=== PATIENT | male | born 1960 | race Caucasian/White ===

== ENCOUNTER 2018-06-15 10:26 | Inpatient (IN) ==
[2018-06-15] MEDS ORDERED: SODIUM CHLORIDE 0.9% 1000ML 1,000 ML IV ONE (10:45)
[2018-06-15 10:54] LABS: Basophils # (auto) 0.02 K/uL (0-0.2); Basophils % (auto) 0.3 %; Eosinophils # (auto) 0.23 K/uL (0-0.5); Hematocrit (blood only) 40.9 % (42-52); Hemoglobin 14.1 g/dL (14.0-18.0); Lymphocytes # (auto) 2.25 K/uL (1.2-3.4); Lymphocytes % (auto) 39.1 %; Mean Corpuscular Hgb Conc 34.5 g/dL (32-36); Mean Corpuscular Volume 95.6 fL (80-100); Mean Platelet Volume 10.2 fL (7.4-10.4); Monocytes # (auto) 0.59 K/uL (0.11-0.59); Monocytes % (auto) 10.3 %; Neutrophils # (auto) 2.66 K/uL (1.4-6.5); Neutrophils % (auto) 46.3 %; Platelet Count 208 K/uL (130-400); RDW Coefficient of Variation 13.6 % (11.5-14.5); RDW Standard Deviation 47.5 fL (36.4-46.3); Red Blood Count 4.28 M/uL (4.7-6.1); White Blood Count 5.75 K/uL (4.8-10.8)
--- NOTE | 2018-06-15 11:00 | CT Scan Report ---
CT head/brain wo con CT DOSE: 691.05 mGy.cm HISTORY: Stroke. Mental status change. Stroke evaluation TECHNIQUE: Multiaxial CT images of the head were performed without the use of intravenous contrast. A dose lowering technique was utilized adhering to the principles of ALARA. Comparison: None. Findings: Moderate mucosal thickening in the ethmoid and maxillary sinuses. The mastoid air cells are clear. Findings of age-related atrophy and chronic small vessel change. 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 The calvarium and skull base are intact. The ventricles and sulci are within normal limits. There is no mass, hematoma, midline shift, or acute infarct. No evidence for acute intracran ial hemorrhage Impression: 1. No acute intracranial abnormality. 2. Age-related atrophy and chronic small vessel change. 3. Moderate mucosal thickening in the ethmoid and maxillary sinuses. The above report was generated using voice recognition software. It may contain grammatical, syntax or spelling errors. Electronically signed by: Marco Antonio Sultana M.D. 06/15/2018 10:59 AM
[2018-06-15 11:10] LABS: Alanine Aminotransferase 26 U/L (12-78); Albumin Level 3.4 gm/dl (3.4-5.0); Aspartate Aminotransferase 22 U/L (15-37); BUN Creatinine Ratio 18.1 (10-20); Blood Urea Nitrogen 16 mg/dl (7-18); Calcium 9.1 mg/dl (8.5-10.1); Carbon Dioxide 22 mmol/L (21-32); Chloride 110 mmol/L (98-107); Creatinine Clr Calc Pharmacy 92.6 ml/min; Est GFR (African American) 110.5; Est GFR (Non-African American) 95.4; Glucose 88 mg/dl (70-99); Potassium 3.9 mmol/L (3.5-5.1); Sodium 140 mmol/L (136-145)
[2018-06-15 11:15] LABS: Albumin Globulin Ratio 0.9 (0.9-2); Alkaline Phosphatase 62 U/L (45-117); Bilirubin,Total 0.3 mg/dl (0.2-1); Globulin 3.8 gm/dl (2.5-4.0); Phosphorus 2.9 mg/dl (2.5-4.9); Total Protein 7.2 gm/dl (6.4-8.2); Troponin I < 0.015 ng/ml (0-0.045)
[2018-06-15] MEDS ORDERED: ASPIRIN CHEW 324 MG PO STA (11:41)
--- NOTE | 2018-06-15 13:10 | Emergency Department Note ---
Entered by Lelo Amaya acting as a scribe for History of Present Illness General Chief complaint: Stroke/CVA Symptoms Time Seen by Provider: 06/15/18 10:37 History of Present Illness Onset (ago): day(s) (this morning) Location: head Pain Consistency: + other (episode) Quality: + other (stroke like symptoms) Associated symptoms: + denies other symptoms (numbness, tingling, vision changes) and + other (speech slur, facial droop); no chest pain and no weakness The patient is a 57 male w/ PMHx of a stroke who presents to the ED w/ CC of an episode of stroke like symptoms starting this morning. The patient states that he went to bed fine last night about 12 hours ago. He states that when he woke up this morning about 5 hours ago he noticed that his speech felt slurred and he had a left facial droop. He states that it hasnt gotten any better since starting so he called 911. He states that he is nervous because he had a stroke last year and is on baby aspirin. The patient denies chest pain, numbness, tingling, weakness, vision changes, recent travel, recent antibiotic use, and recent fall. Home Medications Home Medications Medication Instructions Recorded Confirmed Type amlodipine 10 mg PO DAILY 06/15/18 06/15/18 History atorvastatin 80 mg PO HS 06/15/18 06/15/18 History hydrochlorothiazide 25 mg PO QAM 06/15/18 06/15/18 History losartan 25 mg PO DAILY 06/15/18 06/15/18 History Allergies Allergy/AdvReac Type Severity Reaction Status Date / Time No Known Allergies Allergy Verified 06/15/18 11:22 Past Med/Surg History Medical History Stroke Family History Other No significant family history Social History marital status: Single Current Living Situation: Homeless current occupational status: unemployed Feels Safe at Home: Yes Smoking Status: Current every day smoker Hx Alcohol Use: Yes Alcohol type: hard liquor Review of Systems See HPI for pertinent positives & negatives. and A total of 10 systems reviewed and were otherwise negative Physical Exam Vital Signs Vital Signs - 24 hr 06/15/18 10:30 06/15/18 10:48 06/15/18 11:00 Temperature 37 C Temperature Source Oral Sepsis Recent Fever Within 48 Hours No Sepsis Action Taken by Nursing No Action Required Pulse Rate 95 H 88 Pulse Rate from SpO2 Sensor 84 Pulse Rhythm Regular Pulse Strength Normal Respiratory Rate 20 14 Respiratory Effort / Characteristics Non-Labored Spontaneous Respiratory Depth Normal Respiratory Pattern Regular Blood Pressure 166/99 H Blood Pressure Mean 121 Blood Pressure Position Lying Pulse Oximetry 94 95 Oxygen Delivery Method Room Air Room Air Room Air 06/15/18 11:30 06/15/18 12:00 Temperature Temperature Source Sepsis Recent Fever Within 48 Hours Sepsis Action Taken by Nursing Pulse Rate 77 82 Pulse Rate from SpO2 Sensor 77 82 Pulse Rhythm Pulse Strength Respiratory Rate 18 13 Respiratory Effort / Characteristics Respiratory Depth Respiratory Pattern Blood Pressure 152/86 H Blood Pressure Mean 108 Blood Pressure Position Pulse Oximetry 95 96 Oxygen Delivery Method Room Air Room Air GENERAL: Well appearing, well nourished, NAD, non-toxic. EYE EXAM: Normal conjunctiva. PERRL, no anisocoria and EOM's grossly intact w/o pain. OROPHARYNX: Moist mucus membranes. Grossly normal dentition. NECK: Supple, no nuchal rigidity, no adenopathy, non-tender. no signs of meningismus. LUNGS: Clear to auscultation. Normal chest wall mechanics. HEART: NSR, no MRG. ABDOMEN: Abdomen soft, non-tender, normo-active bowel sounds, no masses, no rebound or guarding. BACK: No CVA TTP. SKIN: No rashes and no bruising. UPPER EXTREMITIES: Upper extremities are grossly normal. LOWER EXTREMITIES: No pitting edema. No calf pain. NEURO EXAM: A&O x3, cranial nerves II-XII grossly intact with the exception of mild slurred speech, left sided facial droop but able to raise L eyebrow, 5/5 strength throughout, no sensory deficits, good finger to nose, no pronator drift, moves all 4 extremities on command w/o issue. Course 1040: The patient was evaluated in room B12B. A complete history and physical exam was performed. 1145: I discussed the patient's case with Candis Deleon PA-C- [facility] Hospitalist. She will evaluate the patient for further management. 1221: I reevaluated the patient and updated him on his test results. I discussed the treatment plan with him. He verbally agrees and understands. Consultations Consultation #1: I discussed the patient's case with Candis Deleon PA-C- [facility] Hospitalist. She will evaluate the patient for further management. Time: 11:45 Administered Medications Discontinued Medications Aspirin (Aspirin) 324 mg PO NOW STA Stop: 06/15/18 11:42 Last Admin: 06/15/18 12:02 Dose: 324 mg Documented by: [id number] Sodium Chloride (Nss 1000ml) 1,000 mls @ 999 mls/hr IV .Q1H1M ONE Stop: 06/15/18 11:45 Last Infusion: 06/15/18 11:50 Dose: 0 mls/hr Documented by: [id number] Admin: 06/15/18 10:49 Dose: 999 mls/hr Documented by: [id number] Medical Decision Making Differential Diagnosis Differential Diagnosis includes but is not limited to dehydration, stroke, anemia, hypoglycemia, hyponatremia, hypernatremia, urinary tract infection, pneumonia, bronchitis, sepsis, gastroenteritis, additional abdominal pathology, metabolic abnormalities and infections. Medical Records Attestation: I reviewed the patient's medical records. Home Medications Current Medication List: was personally reviewed by me Laboratory Data Attestation: I reviewed the patient's lab results. Result diagrams: 06/15/18 10:20 06/15/18 10:20 Lab Results 06/15/18 06/15/18 06/15/18 Range/Units 10:20 10:20 10:20 WBC 5.75 (4.8-10.8) K/uL RBC 4.28 L (4.7-6.1) M/uL Hgb 14.1 (14.0-18.0) g/dL Hct 40.9 L (42-52) % MCV 95.6 (80-100) fL MCH 32.9 (25-34) pg MCHC 34.5 (32-36) g/dL RDW Std Deviation 47.5 H (36.4-46.3) fL RDW Coeff of Faith 13.6 (11.5-14.5) % Plt Count 208 (130-400) K/uL MPV 10.2 (7.4-10.4) fL Immature Gran % (Auto) 0.0 % Neut % (Auto) 46.3 % Lymph % (Auto) 39.1 % [place] % (Auto) 10.3 % Eos % (Auto) 4.0 % Baso % (Auto) 0.3 % Immature Gran # (Auto) 0.00 (0.00-0.02) K/uL Neut # (Auto) 2.66 (1.4-6.5) K/uL Lymph # (Auto) 2.25 (1.2-3.4) K/uL [place] # (Auto) 0.59 (0.11-0.59) K/uL Eos # (Auto) 0.23 (0-0.5) K/uL Baso # (Auto) 0.02 (0-0.2) K/uL PT Cancelled INR Cancelled APTT Cancelled PTT Ratio Cancelled Sodium (136-145) mmol/L Potassium (3.5-5.1) mmol/L Chloride (98-107) mmol/L Carbon Dioxide (21-32) mmol/L Anion Gap (3-11) BUN (7-18) mg/dl Creatinine (0.6-1.4) mg/dl Est Cr Clr Drug Dosing ml/min Est GFR ( Amer) Est GFR (Non-Af Amer) BUN/Creatinine Ratio (10-20) Glucose (70-99) mg/dl POC Glucose (70-99) Calcium (8.5-10.1) mg/dl Phosphorus Cancelled Magnesium (1.8-2.4) mg/dl Total Bilirubin (0.2-1) mg/dl AST (15-37) U/L ALT (12-78) U/L Alkaline Phosphatase (45-117) U/L Troponin I (0-0.045) ng/ml Total Protein (6.4-8.2) gm/dl Albumin (3.4-5.0) gm/dl Globulin (2.5-4.0) gm/dl Albumin/Globulin Ratio (0.9-2) Ethyl Alcohol mg/dL (0-3) mg/dl 06/15/18 06/15/18 06/15/18 Range/Units 10:20 10:32 11:04 WBC (4.8-10.8) K/uL RBC (4.7-6.1) M/uL Hgb (14.0-18.0) g/dL Hct (42-52) % MCV (80-100) fL MCH (25-34) pg MCHC (32-36) g/dL RDW Std Deviation (36.4-46.3) fL RDW Coeff of Faith (11.5-14.5) % Plt Count (130-400) K/uL MPV (7.4-10.4) fL Immature Gran % (Auto) % Neut % (Auto) % Lymph % (Auto) % [place] % (Auto) % Eos % (Auto) % Baso % (Auto) % Immature Gran # (Auto) (0.00-0.02) K/uL Neut # (Auto) (1.4-6.5) K/uL Lymph # (Auto) (1.2-3.4) K/uL [place] # (Auto) (0.11-0.59) K/uL Eos # (Auto) (0-0.5) K/uL Baso # (Auto) (0-0.2) K/uL PT INR APTT PTT Ratio Sodium 140 (136-145) mmol/L Potassium 3.9 (3.5-5.1) mmol/L Chloride 110 H (98-107) mmol/L Carbon Dioxide 22 (21-32) mmol/L Anion Gap 9.0 (3-11) BUN 16 (7-18) mg/dl Creatinine 0.88 (0.6-1.4) mg/dl Est Cr Clr Drug Dosing 92.6 ml/min Est GFR ( Amer) 110.5 Est GFR (Non-Af Amer) 95.4 BUN/Creatinine Ratio 18.1 (10-20) Glucose 88 (70-99) mg/dl POC Glucose 92 (70-99) Calcium 9.1 (8.5-10.1) mg/dl Phosphorus 2.9 Magnesium 2.0 (1.8-2.4) mg/dl Total Bilirubin 0.3 (0.2-1) mg/dl AST 22 (15-37) U/L ALT 26 (12-78) U/L Alkaline Phosphatase 62 (45-117) U/L Troponin I < 0.015 (0-0.045) ng/ml Total Protein 7.2 (6.4-8.2) gm/dl Albumin 3.4 (3.4-5.0) gm/dl Globulin 3.8 (2.5-4.0) gm/dl Albumin/Globulin Ratio 0.9 (0.9-2) Ethyl Alcohol mg/dL < 3.0 (0-3) mg/dl Imaging Data Radiologist's Impression: Radiology results as stated below per my review and the radiologist's interpretation: CT head/brain wo con CT DOSE: 691.05 mGy.cm HISTORY: Stroke. Mental status change. Stroke evaluation TECHNIQUE: Multiaxial CT images of the head were performed without the use of intravenous contrast. A dose lowering technique was utilized adhering to the principles of ALARA. Comparison: None. Findings: Moderate mucosal thickening in the ethmoid and maxillary sinuses. The mastoid air cells are clear. Findings of age-related atrophy and chronic small vessel change. 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 The calvarium and skull base are intact. The ventricles and sulci are within normal limits. There is no mass, hematoma, midline shift, or acute infarct. No evidence for acute intracranial hemorrhage Impression: 1. No acute intracranial abnormality. 2. Age-related atrophy and chronic small vessel change. 3. Moderate mucosal thickening in the ethmoid and maxillary sinuses. The above report was generated using voice recognition software. It may contain grammatical, syntax or spelling errors. Electronically signed by: Marco Antonio Sultana M.D. 06/15/2018 10:59 AM ECG Data Attestation: I personally reviewed and interpreted this ECG as follows: Indication: weakness Rate (beats per minute): 89 Rhythm: normal sinus Findings: + other (normal intervals, normal axis); no ST depression and no ST elevation Blood Pressure Blood Pressure Findings: Elevated blood pressure Blood Pressure Disposition: further management by hospitalist BEENA Narrative The patient is a 57 male w/ PMHx of a stroke who presents to the ED w/ CC of an episode of stroke like symptoms starting this morning. Differential Diagnosis includes but is not limited to dehydration, stroke, anemia, hypoglycemia, hyponatremia, hypernatremia, urinary tract infection, pneumonia, bronchitis, sepsis, gastroenteritis, additional abdominal pathology, metabolic abnormalities and infections. Patient was seen and evaluated the bedside. I did receive a medical command call with concern for slurred speech as well as some facial droop. This apparently was upon waking up around 6 AM this morning. The patient went to bed around 1030 last evening normal. Patient denies any alcohol use or falls. Patient is 12 hours at least since last known well. Patient did have a CT of the head which is negative. The patient does not appear to have absent left eyebrow function. Given this this concern for possible central etiology. The patient does have prior history of stroke with no prior history of deficits. The patient does take a full dose aspirin. The patient's other blood work is fairly unremarkable. EKG does not show arrhythmia. Patient was given a full dose aspirin and given the patient's persistent left-sided facial droop and associated slurred speech patient was admitted to the medicine service. Impression & Plan Facial droop, Slurred speech Discharge Plan Visit Data Chief Complaint: Stroke/CVA Symptoms ED Provider: Jemal Joy Discharge Problem: Facial droop, Slurred speech Patient Disposition: Being Evaluated by Hospitalist Forms Stand Alone Forms: My [facility] Prescriptions Prescriptions: No Action atorvastatin 40 mg Tablet 80 mg PO HS RF: 0 amlodipine 10 mg Tablet 10 mg PO DAILY RF: 0 losartan 25 mg Tablet 25 mg PO DAILY RF: 0 hydrochlorothiazide 25 mg Tablet 25 mg PO QAM RF: 0 Referrals Referrals: PCP,NO [Primary Care Provider] - Queries: Stroke Queries Contraindication Not Initiating IV-Tpa: Treatment not indicated (Last known well was 12 hours ago; woke up with symptoms) Onset of Symptoms Date: 06/15/18 Symptom Onset Unknown: No The scribe's documentation has been prepared under my direction and personally reviewed by me in its entirety. I confirm that the note above accurately reflects all work, treatment, procedures, and medical decision making performed by me.
--- NOTE | 2018-06-15 14:54 | Neurology Consultation ---
Date of Consultation June 15, 2018 Assessment & Plan (1) Facial droop: 1. MRI with and without r/o stroke 2. TTE- with bubble study 3. CTA head and neck for vascular evaluation 4. start aspirin 81 mg daily 5. optimize HTN, HLD, LDL <70 6. smoking cessation discussed 7. PT/OT speech for any discharge needs 8. will need to establish care mgt input for discharge plan 9. further recommendations once studies are completed. (2) Slurred speech: same as above (3) Stroke: same as above Supervising Physician Co-Signing Physician Notes I have discussed above patient with Dr Lucero Crum, neurology. Pt is not at bedside. Hx of prior stroke reviewed. Pt with vasc risk factors, not currently taking his meds. MRI shows acute R BG infarct. ASA and Plavix at present, carotid us, echo, tele. Statin, gradual reduction of normotension. Will see in am. ANABELA Crum MD History of Present Illness Reason for Consultation: stroke work up Requesting Physician: Candis BOATENG History of Present Illness Yann is a 57 year old male who presented with a facial droop and slurred speech. He woke this am with the symptoms. He had a stroke in December in [place] with similar symptoms. He was placed on aspirin after the previous stroke but has not been taking it or the other medication he was told to take. He is currently homeless but moved to [facility] to be closer to his family. he denies any drug or EtoH use. he smokes 1ppd cigarettes. denies CP, SOB, abdominal pain, one sided weakness, numbness tingling, N, V, vision changes, swallowing issues. Allergies Allergy/AdvReac Type Severity Reaction Status Date / Time No Known Allergies Allergy Verified 06/15/18 11:22 Home Medications Home Medications Medication Instructions Recorded Confirmed Type amlodipine 10 mg PO DAILY 06/15/18 06/15/18 History atorvastatin 80 mg PO HS 06/15/18 06/15/18 History hydrochlorothiazide 25 mg PO QAM 06/15/18 06/15/18 History losartan 25 mg PO DAILY 06/15/18 06/15/18 History Patient History Medical History History of CVA (cerebrovascular accident) (Chronic) November 2017, no deficits HLD (hyperlipidemia) (Chronic) HTN (hypertension) (Chronic) Surgical History History of foot surgery (Chronic) Family History Other Family history unknown Social History Preferred Language: Chinese Extr[employer]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 Beliefs That Will Affect Care: None marital status: Single Current Living Situation: Homeless Current Living Situation Comment: out of the cold homeless correction current occupational status: unemployed Other Information That Helps Us Care for You: No Feels Safe at Home: Yes Safety Concerns: Feels Safe At This Time Smoking Status: Current every day smoker Tobacco Type: cigarettes Cigarettes Per Day: 1ppd Do You Dip or Chew Tobacco: No Hx Alcohol Use: Yes Alcohol type: hard liquor Hx Substance Use: No Physical Exam Physical Exam: Physical Exam: Constitutional: appearance nourished, disheveled, unkept Ears, Nose, Mouth and Throat: mucous membranes moist, no injection and skin normal, eyes normal Cardiovascular: normal S-1 and S-2 and regular rate and rhythm Respiratory: course breath sounds Musculoskeletal: no peripheral edema Skin: no stigmata of neurocutaneous disease noted and normal and intact Eyes: extraocular muscles intact (EOMI) and pupils equal, round and reactive to light (PERRL), gross vision and peripheral marks intake NEUROLOGIC EXAMINATION: Mental status: Alert and interactive Oriented to full date and location Oriented to person Speech dysphasia Cranial Nerves smile unequal, nasolabial fold left flattened Reflexes: Deep tendon reflexes were symmetrical and graded 2/5. Sensory: no deficit to light cool touch Coordination: finger to nose no bipass Gait/Stance: Posture strength bilaterally biceps triceps hand outpatient scheduler 5/5, hip flex patellar plantar flex ext 5/5 bilaterally Motor: Negative for pronator drift of out stretched arms with eyes closed. Strength: Normal - 5/5 all extremities Results & Data Vital Signs (Past 12 Hours) Vital Signs Temp Pulse Resp BP Pulse Ox 06/15/18 14:00 72 16 134/79 96 06/15/18 13:01 78 14 155/81 H 93 06/15/18 13:00 80 13 93 06/15/18 12:31 76 10 L 149/84 H 93 06/15/18 12:30 79 14 94 06/15/18 12:16 76 11 L 152/86 H 94 06/15/18 12:00 82 13 152/86 H 96 06/15/18 11:30 77 18 95 06/15/18 11:00 88 14 95 06/15/18 10:30 37 C 95 H 20 166/99 H 94 Laboratory Results Abnormal lab results 06/15/18 06/15/18 Range/Units 10:20 10:20 RBC 4.28 L (4.7-6.1) M/uL Hct 40.9 L (42-52) % RDW Std Deviation 47.5 H (36.4-46.3) fL Chloride 110 H (98-107) mmol/L Diagnostic Findings CT head -No acute intracranial abnormality. Age-related atrophy and chronic small vessel change. Moderate mucosal thickening in the ethmoid and maxillary sinuses.
--- NOTE | 2018-06-15 15:18 | History & Physical Report ---
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 -L facial droop and dysarthria since this morning -H/o ischemic CVA in Nov 2017, started on full dose aspirin -Has not taken home medications for the past few weeks -CT head wo without evidence of acute abnormality -Brain MRI w/wo with acute right basal ganglia infarct. Moderately extensive white matter disease with multiple old lacunar infarcts involving both cerebellar hemispheres the pontomedullary junction both basal ganglia and both thalami. -CTA head/neck with senescent change and remote infarcts. There is no hemo rrhage, mass effect, or evidence of acute territorial ischemia by CT criteria noting angiographic technique. There is approximately 50% focal stenosis at the origin of the left internal carotid artery. The carotid arteries are otherwise patent bilaterally. -Echo with bubble study pending -Dual antiplatelet therapy with baby aspirin, plavix -PT, OT, speech therapy evaluations -Neurology consulted. Appreciate recommendations (2) HTN (hypertension): Prescribed amlodipine, losartan and hctz but has not been taking for the last few weeks -Will hold for now to allow for permissive HTN in setting of acute ischemic infarct to allow for cerebral perfusion: SBP <220, DBP <110 (3) HLD (hyperlipidemia): Continue statin DVT Ppx: SCDs Code status: FULL code per discussion with patient PCP: Assigned to Dr. Griggs (has not seen yet) Dispo: Observation med tele. Discharge planning per stroke set protocol. Patient seen in collaboration with Dr. Resendiz. Please see addendum. History of Present Illness Chief Complaint: Facial droop, slurred speech Primary Care Provider: NO PCP This is a 57-year-old male with history of ischemic CVA in Nov 2017, HTN, HLD, tobacco use disorder and other medical problems listed below who presents with facial droop and slurred speech beginning this morning. Patient woke up and noted these new symptoms and called EMS to be brought to the ED for further evaluation. Did not have the symptoms when he went to bed last night. Was diagnosed with a stroke in November 2017 but was in [place] at that time. Was started on a full dose aspirin. Has recently moved to [place] to be closer to family, but is currently homeless and staying in shelters via [facility]. Has not been taking medications because he feels that they are difficult to keep track of. Denies any difficulty swallowing, weakness or numbness in extremities, difficulty ambulating or confusion. Smokes 1 ppd cigarettes x 30 years. Last etoh 2 weeks ago. Found to be hemodynamically stable in ED. Given full dose aspirin and [address] head without contrast is negative for acute abnormalities. Denies fever, chills, lightheadedness, headache, chest pain, shortness of breath, nausea, vomiting, abdominal pain, dysuria, diarrhea, constipation or lower extremity swelling. Allergies Allergy/AdvReac Type Severity Reaction Status Date / Time No Known Allergies Allergy Verified 06/15/18 11:22 Home Medications Home Medications Medication Instructions Recorded Confirmed Type amlodipine 10 mg PO DAILY 06/15/18 06/15/18 History atorvastatin 80 mg PO HS 06/15/18 06/15/18 History hydrochlorothiazide 25 mg PO QAM 06/15/18 06/15/18 History losartan 25 mg PO DAILY 06/15/18 06/15/18 History Past Med/Surg History Medical History History of CVA (cerebrovascular accident) (Chronic) November 2017, no deficits HLD (hyperlipidemia) (Chronic) HTN (hypertension) (Chronic) Surgical History History of foot surgery (Chronic) Family History Other Family history unknown Social History marital status: Single Current Living Situation: Homeless current occupational status: unemployed Feels Safe at Home: Yes Smoking Status: Current every day smoker Hx Alcohol Use: Yes Alcohol type: hard liquor Review of Systems Review of Systems: At least ten systems reviewed and negative except as noted in the HPI. Physical Exam Physical Exam: General Appearance: WD/WN, no apparent distress, appears older than stated age, resting comfortably Head: normocephalic, atraumatic Eyes: normal inspection, PERRL, EOMI ENT: hearing grossly normal, pharynx normal (moist mucous membranes) Neck: supple, no JVD, no adenopathy Respiratory/Chest: lungs clear to auscultation. No wheezes, rales or rhonci. No respiratory distress or accessory muscle use Cardiovascular: regular rate, rhythm, no murmur, normal peripheral pulses Abdomen/GI: normal bowel sounds, soft, non-tender to palpation Extremities/Musculoskelatal: normal inspection, no calf tenderness, normal capillary refill, no pedal edema Neurologic/Psych: alert, normal mood/affect, oriented x 3. L facial droop. Dysarthria. No weakness or sensory deficit noted. Cerebellar tests normal Skin: normal color, warm/dry Results & Data Vital Signs (Past 12 Hours) Vital Signs Temp Pulse Resp BP Pulse Ox 06/15/18 14:00 72 16 134/79 96 06/15/18 13:01 78 14 155/81 H 93 06/15/18 13:00 80 13 93 06/15/18 12:31 76 10 L 149/84 H 93 06/15/18 12:30 79 14 94 06/15/18 12:16 76 11 L 152/86 H 94 06/15/18 12:00 82 13 152/86 H 96 06/15/18 11:30 77 18 95 06/15/18 11:00 88 14 95 06/15/18 10:30 37 C 95 H 20 166/99 H 94 Laboratory Results Short CBC 06/15/18 Range/Units 10:20 WBC 5.75 (4.8-10.8) K/uL Hgb 14.1 (14.0-18.0) g/dL Hct 40.9 L (42-52) % Plt Count 208 (130-400) K/uL BMP 06/15/18 10:20 Sodium 140 Potassium 3.9 Chloride 110 H Carbon Dioxide 22 BUN 16 Creatinine 0.88 Glucose 88 Calcium 9.1 Cardiac Enzymes 06/15/18 Range/Units 10:20 Troponin I < 0.015 (0-0.045) ng/ml Liver Function 06/15/18 Range/Units 10:20 Total Bilirubin 0.3 (0.2-1) mg/dl AST 22 (15-37) U/L ALT 26 (12-78) U/L Alkaline Phosphatase 62 (45-117) U/L Albumin 3.4 (3.4-5.0) gm/dl Diagnostic Findings CT head: Impression: 1. No acute intracranial abnormality. 2. Age-related atrophy and chronic small vessel change. 3. Moderate mucosal thickening in the ethmoid and maxillary sinuses. ECG Rhythm: normal sinus Change: no significant change Supervising Physician Co-Signing Physician Notes I have seen and examined the patient with physician credit control assistant and would like to comment in addition that Physical Exam General/Neuro: left sided facial droop, patient able to chew and swallow food at bedside, left sided upper extremity and lower extremity with more ataxia compared to right side Lungs: Clear to auscultation bilaterally, no wheezing Heart: regular rate and rhythm Abdomen: soft, nontender, positive bowel sounds This is a patient with acute stroke and evaluation with MRI that patient has had Acute right basal ganglia infarct which is likely the source of acute symptoms of left sided facial droop and left extremity ataxia MRI also with findings of old infarcts: Moderately extensive white matter disease with multiple old lacunar infarcts involving both cerebellar hemispheres the pontomedullary junction both basal ganglia and both thalami. Patient have received full dose aspirin today and has been outside of window for TPA Are currently in discussing with neurology consultation and likely will do aspirin 81 mg daily and clopidgrel 75 mg daily will need further inpatient monitoring and physical and occupational therapy Patient gave permission to speak with Toño Goetz director of "[facility]" which is a homeless [facility] ([phone]) who reports that patient has been with the homeless agency for several months as he was originally from [place] and came to [place] to repair relationship with estranged sister in the local area. However patient no longer stays in touch with the sister due to deteriorated relationship. Patient in the past received medical care through [facility] ([facility]) but after obtaining medical assistance the patient will follow with Dr. Griggs at [facility] but patient has not seen this outpatient medical provider as of yet Management of other medical issues as documented by physician credit control assistant including Hypertension and continuing high dose statin for treating hyperlipidemia and reduce recurrent stroke risks History of alcohol intoxication in the past as per previous ED presentations; will give banana bag
[2018-06-15] MEDS ORDERED: ACETAMINOPHEN 325 MG TAB PO PRN (15:37)
[2018-06-15] MEDS ORDERED: POLYETHYLENE (MIRALAX) 17 GM PACK PO PRN (15:37)
[2018-06-15] MEDS ORDERED: ONDANSETRON INJ 2 MG/ML 2 ML VIAL IV PRN (15:37)
[2018-06-15] MEDS ORDERED: PHARMACIST DISCHARGE MED REC CONSULT SCH (15:39)
[2018-06-15] MEDS ORDERED: OPTIRAY 320 125ml IV PRN (16:20)
--- NOTE | 2018-06-15 16:40 | CT Scan Report ---
CT ANGIOGRAM OF THE BRAIN; CT ANGIOGRAM OF THE NECK CLINICAL HISTORY: Strokelike symptoms. COMPARISON STUDY: CT of the brain performed the same day 06/15/2018. CT scan of the cervical spine jose ed 05/17/2018. TECHNIQUE: Following the IV administration of 119 of Optiray 320, CT angiogram of the head and neck w as performed from the aortic arch to the vertex. Images are reviewed in the axial, sagittal, and cassandra nal planes. 3-D MIPS images are created and assessed. IV contrast was administered without complicati on. All measurements were calculated based on NASCET criteria. A dose lowering technique was utilize d adhering to the principles of ALARA. CT DOSE: 539.45 mGy.cm FINDINGS: Brain parenchyma: There is age-related involutional change noting moderate subcortical and periventri cular microangiopathic disease. Chronic lacunar infarcts identified within the right caudate head, th e right internal capsule, the right thalamus, the left caudate head, the left cerebellar hemisphere, and the external capsule bilaterally. There is no hemorrhage, mass effect, or evidence of acute jesse torial ischemia by CT criteria. There is no evidence of enhancing mass lesion on the angiogram phase images. The ventricles, sulci, and cisterns are prominent secondary to involutional change. Motley-whit e matter differentiation is preserved. No extra-axial fluid collection is seen. Thoracic aorta: There is atherosclerotic calcification of the thoracic aorta. Visualized portions of the thoracic aorta are normal in caliber. The aortic arch demonstrates standard 3-vessel anatomy. Right carotid arterial system: The right common carotid artery is widely patent, as are the right int ernal and internal carotid arteries. Moderate atherosclerotic plaque is identified in the carotid bul b. Left carotid arterial system: The left common carotid artery is widely patent noting atherosclerotic plaque and irregularity distally. There is approximately 50% focal stenosis at the origin of the left internal carotid artery. The remainder of the left internal carotid artery is widely patent, as is t he left external carotid artery. Vertebral arteries: The vertebral arteries are patent bilaterally noting left-sided dominance. Subclavian arteries: There is less than 50% stenosis of the left subclavian artery at the thoracic ou tlet. The right subclavian artery is widely patent. Intracranial vasculature: There is atherosclerotic calcification of the cavernous carotid arteries. T he internal carotid arteries are patent at the skull base, as are the anterior and middle cerebral ar teries bilaterally. The vertebrobasilar system and posterior cerebral arteries are widely patent. The right P1 segment is diminutive and there is a large right posterior communicating artery. The left v ertebral artery is dominant. There is no aneurysm, high-grade stenosis, or focal vessel cut off seen throughout the intracranial circulation. Jugular veins: Widely patent bilaterally. Dural sinuses: Patent. Lung apices: Emphysematous change and pleural-parenchymal scarring are noted at the apices. The image d upper lobe lung parenchyma appears clear. Soft tissues: The visualized pharyngeal soft tissues are normal in appearance noting angiographic pha se technique. The oropharyngeal airway appears widely patent. The salivary and thyroid glands are nor mal in appearance. No cervical lymphadenopathy is seen. Skeletal structures: The skeletal structures are osteopenic. The calvarium appears intact. The cervic al spine is maintained noting multilevel spondylosis limits. Orbits: The bony orbits are intact. Orbital contents are normal as imaged. Sinuses and mastoids: There is mild to moderate mucosal thickening with air-fluid levels is seen in t he maxillary antra. Moderate mucosal thickening is present within the frontal and ethmoid sinuses. Mi ld mucosal thickening is seen in the sphenoid sinuses. The mastoid air cells are well pneumatized. IMPRESSION: 1. Senescent change and remote infarcts as above. There is no hemorrhage, mass effect, or evidence of acute territorial ischemia by CT criteria noting angiographic technique. 2. Unremarkable CT angiogram of the brain. 3. There is approximately 50% focal stenosis at the origin of the left internal carotid artery. The c arotid arteries are otherwise patent bilaterally. 4. There is less than 50% stenosis of the left subclavian artery at the thoracic outlet. 5. Paranasal sinus disease as above. 6. Emphysema. Electronically signed by: Houston Pavon M.D. 06/15/2018 4:38 PM
[2018-06-15] MEDS ORDERED: GADOBUTROL 65ML VIAL IV PRN (17:04)
--- NOTE | 2018-06-15 17:30 | Magnetic Resonance Report ---
MRI OF THE BRAIN WITHOUT AND WITH IV CONTRAST CLINICAL HISTORY: stroke work up. Slurred speech, L facial droop COMPARISON STUDY: CT scan dated 06/15/2018 TECHNIQUE: MRI of the brain was performed from the vertex to the skull base utilizing various T1 and T2 weighted sequences. Following the IV administration of 7.7 mL of Gadavist contrast, additional enh anced images were obtained. FINDINGS: Sagittal T1, axial diffusion, proton density and T2 weighted axial, coronal FLAIR, and pre and post a xial T1-weighted images were acquired. These were supplemented with post gadolinium coronal T1 weight ed images. No intra or extra-axial mass lesions are visualized. There are foci of restricted water diffusion within the right lentiform nucleus and right caudate. Th e largest lesion measures 25 mm. The findings are consistent with acute/subacute infarcts. There is no evidence of ventricular dilatation. Proton density T2-weighted and FLAIR images reveal moderate foci of increased T2 signal within the wh ite matter, likely on a small vessel basis. There are multiple old lacunar infarcts including lesions within both cerebellar hemispheres, and the pontomedullary junction, both basal ganglia, and both th leandro. In addition there is atrophy including cerebellar atrophy. There are no abnormal flow voids. There is no evidence of pathologic enhancement. There is moderately extensive sinus disease. IMPRESSION: 1. Acute right basal ganglia infarct 2. Moderately extensive white matter disease with multiple old lacunar infarcts involving both cerebe llar hemispheres the pontomedullary junction both basal ganglia and both thalami. 3. Atrophy 4. No evidence of intracranial mass Electronically signed by: Cristian Crow M.D. 06/15/2018 5:28 PM
[2018-06-15] MEDS ORDERED: MULTI-VITAMIN INFUSION 10 ML, THIAMINE HCL 100 MG, FOLIC ACID 1 MG in SODIUM CHLORIDE 0... IV SCH (19:15)
[2018-06-15] MEDS: THIAMINE HCL 50 MG TABLET PO SCH (20:40)
[2018-06-15] MEDS: ATORVASTATIN 40 MG TAB PO SCH (20:41)
[2018-06-16] MEDS: THIAMINE HCL 50 MG TABLET PO SCH (08:02)
[2018-06-16] MEDS: CLOPIDOGREL BISULFATE 75 MG TAB PO SCH (08:02)
[2018-06-16] MEDS: ASPIRIN 81 MG ECTAB PO SCH (08:34)
[2018-06-16 08:54] LABS: Hemoglobin 14.7 g/dL (14.0-18.0); Mean Corpuscular Hgb Conc 35.9 g/dL (32-36); Mean Corpuscular Volume 94.5 fL (80-100); Mean Platelet Volume 10.2 fL (7.4-10.4); Platelet Count 210 K/uL (130-400); RDW Coefficient of Variation 13.3 % (11.5-14.5); RDW Standard Deviation 46.7 fL (36.4-46.3); Red Blood Count 4.34 M/uL (4.7-6.1); White Blood Count 5.91 K/uL (4.8-10.8)
[2018-06-16 09:23] LABS: Phosphorus 3.1 mg/dl (2.5-4.9)
[2018-06-16 09:37] LABS: Estimated Average Glucose 103 mg/dl; Hemoglobin A1C 5.2 % (4.5-5.6)
--- NOTE | 2018-06-16 11:24 | Hospitalist Progress Note ---
Date of Service June 16, 2018 Assessment & Plan (1) Acute CVA (cerebrovascular accident): This is a 57-year-old male with history of ischemic CVA in Nov 2017, HTN, HLD, tobacco use disorder and other medical problems listed below who presents with facial droop and slurred speech and was found to have an acute right basal ganglia infarct. acute stroke and evaluation with MRI that patient has had Acute right basal ganglia infarct -acute right basal ganglia infarct likely the source of acute symptoms of left sided facial droop and left extremity ataxia -MRI also with findings of old infarcts: Moderately extensive white matter disease with multiple old lacunar infarcts involving both cerebellar hemispheres the pontomedullary junction both basal ganglia and both thalami; H/o ischemic CVA in Nov 2017 -Patient have received full dose aspirinon admission day of 06/15/18 and was outside of window for TPA -aspirin 81 mg daily and clopidgrel 75 mg daily -continue atorvastatin 80 mg daily -physical and occupational therapy evaluations -on telemetry unit, echocardiogram pending -appreciate further neurology recommendations (2) HTN (hypertension): blood pressure controlled for now - last blood pressure 130/69 will resume home dose amlodipine 10 mg daily will monitor blood pressures further before considering to restart HCTZ 25 mg daily and losartan 25 mg daily (3) HLD (hyperlipidemia): Continue atorvastatin 80 mg daily History of alcohol intoxication in the past as per previous ED presentations -received banana bag on 06/15/18 -no evidence of alcohol withdrawal at this time DVT Ppx: SCDs Code status: FULL code per discussion with patient will need mental health case managermanager wholesale on discharge needs 06/15/18 Patient gave permission to speak with Toño Goetz director of "[facility]" which is a homeless care home agency ([phone]) who reports that patient has been with the homeless agency for several months as he was originally from [place] and came to [place] to repair relationship with estranged sister in the local area. However patient no longer stays in touch with the sister due to deteriorated relationship. Patient in the past received medical care through [facility] ([facility]) but after obtaining medical assistance the patient will follow with Dr. Griggs at [facility] but patient has not seen this outpatient medical provider as of yet Subjective Patient continues to have left sided deficits including left sided ataxia. Patient is being seen by occupational therapy and he is ambulatory. Patient denies choking with food. no vomiting. no chest pain. no abdomen pain. no lightheadedness. no headache Physical Exam Constitutional: WD/WN, vitals as above Eyes: PERRL, conjunctivae normal, anicteric sclerae EOM intact bilaterally ENMT: external ear and nose normal, oropharynx normal Nose: + facial exam abnormality (left facial droop) Neck: trachea midline, no thyromegaly normal visual inspection Respiratory: normal respiratory effort, lungs clear to auscultation Cardiovascular: RRR, no murmur, no edema Gastrointestinal (Abdomen): normal bowel sounds, soft, nontender, no hepatosplenomegaly Musculoskeletal: Head/Neck/Chest: normocephalic and head atraumatic Extremities: + upper extremity abnormal to inspection (left upper extremity ataxia) and + lower leg abnormality (left lower extremity ataxia) Neurologic: normal touch/pain/proprioception and moves all extremities Coordination: + abnormal [id number] test (left upper extremity) and + abnormal [id number] test (left lower extremity) Psychiatric: A+Ox3, euthymic affect Results & Data Vital Signs (Past 12 Hours) Vital Signs Temp Pulse Pulse Resp BP Pulse Ox 06/16/18 08:00 83 06/16/18 07:03 36.7 C 70 18 130/69 97 06/16/18 04:00 36.8 C 91 H 18 156/93 H 97 06/16/18 02:29 86 06/15/18 23:22 36.4 C L 80 21 169/78 H 93
--- NOTE | 2018-06-16 11:35 | Progress Note ---
DATE: 06/16/2018 SUBJECTIVE: The patient was seen yesterday by Lucero Mathur and history reviewed. He has a history of a stroke in November of 2017, which presented with diplopia and instability with some mild residual instability. The patient has been homeless, but living in a nursing home and not taking his medications. He indicated that while he has prescription coverage, he is hesitant to keep medications at the homeless nursing home. He was otherwise well and noted sudden slurred speech and left facial droop. He has noted some tendency to lift the left arm up since this most recent event. There was no accompanying headache, change in vision. He was otherwise well. No chest pain, palpitations or shortness of breath. Again, he was noncompliant with medications and continues to smoke. PHYSICAL EXAMINATION: GENERAL: He is awake and alert. NEUROLOGIC: He is mildly dysarthric. There is a mild flattening of the left nasolabial fold. There is no right/left confusion. No aphasia. There is normal extraocular motility field. Face is as above. Language is normal. Motor: There is some what might be best described as left alien limb phenomenon with the left arm extending upward. The patient is able to bring it back down to a neutral position. No focal seizure activity is noted. Strength appears full. There are decreased left rapid alternating movements. Lower extremity strength is full. No sensory abnormalities are noted. No mayra dystaxia on [id number]. RADIOGRAPHIC DATA: Radiographically, the patient has a new right basal ganglia infarction with moderately extensive white matter disease, multiple lacunes is in the bilateral cerebellar, pontomedullary junction and basal ganglia and both thalami. The CTA of the head and neck, 50% stenosis of the left internal carotid, carotids otherwise patent, left subclavian stenosis at the thoracic outlet 50%, no intracranial disease. EKG was sinus rhythm, anteroseptal infarct, abnormal EKG. IMPRESSION: Multiple anterior and posterior circulation infarcts. PLAN: 1. Current Plavix, aspirin, gradual resumption of normotension, statin. Smoking cessation. Cardiac monitoring, echo with bubble study. The patient will need a Zio patch monitoring post discharge. 2. Alien limb phenomenon. We will monitor. MTDD
[2018-06-16] MEDS: AMLODIPINE BESYLATE 5 MG TAB PO SCH (13:28)
[2018-06-16] MEDS: ATORVASTATIN 40 MG TAB PO SCH (20:37)
[2018-06-17] MEDS: THIAMINE HCL 50 MG TABLET PO SCH (07:49)
[2018-06-17] MEDS: CLOPIDOGREL BISULFATE 75 MG TAB PO SCH (07:49)
[2018-06-17] MEDS: ASPIRIN 81 MG ECTAB PO SCH (07:49)
[2018-06-17] MEDS: AMLODIPINE BESYLATE 5 MG TAB PO SCH (08:24)
--- NOTE | 2018-06-17 13:38 | Hospitalist Progress Note ---
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 acute stroke and evaluation with MRI that patient has had Acute right basal ganglia infarct -acute right basal ganglia infarct likely the source of acute symptoms of left sided facial droop and left extremity ataxia -MRI also with findings of old infarcts: Moderately extensive white matter disease with multiple old lacunar infarcts involving both cerebellar hemispheres the pontomedullary junction both basal ganglia and both thalami; H/o ischemic CVA in Nov 2017 -Patient have received full dose aspirinon admission day of 06/15/18 and was outside of window for TPA -aspirin 81 mg daily and clopidgrel 75 mg daily -continue atorvastatin 80 mg daily -06/17/18: Patient's left sided ataxia appear better today. more coordinate left heel to sheppard test. better left hand finger to nose test. I do not appreciate any Alien limb phenomenon that was suggested by neurology as patient has control of left extremities. still with left facial droop -continue physical and occupational therapy evaluations (2) HTN (hypertension): blood pressure controlled for now - last blood pressure 144/83 continue home dose amlodipine 10 mg daily resume losartan 25 mg daily will monitor blood pressures further before considering to restart HCTZ 25 mg daily (3) HLD (hyperlipidemia): Continue atorvastatin 80 mg daily History of alcohol intoxication in the past as per previous ED presentations -received banana bag on 06/15/18 -no evidence of alcohol withdrawal at this time DVT Ppx: SCDs Code status: FULL code per discussion with patient will need case management coordinatorfleet dispatch manager on discharge needs and application have been made to [facility] for physical rehabilitation 06/15/18 Patient gave permission to speak with Toño Goetz director of "[employer]" which is a homeless retirement agency ([phone]) who reports that patient has been with the homeless agency for several months as he was originally from [place] and came to [place] to repair relationship with estranged sister in the local area. However patient no longer stays in touch with the sister due to deteriorated relationship. Patient in the past received medical care through [facility] but after obtaining medical assistance the patient will follow with Dr. Griggs at [facility] but patient has not seen this outpatient medical provider as of yet Subjective Patient's left sided ataxia appear better today. more coordinate left heel to sheppard test. better left hand finger to nose test. I do not appreciate any Alien limb phenomenon that was suggested by neurology as patient has control of left extremities. patient denies chest pain. no shortness of breath. no pain. no headache or dizziness Physical Exam Constitutional: WD/WN, vitals as above Eyes: PERRL, conjunctivae normal, anicteric sclerae EOM intact bilaterally ENMT: external ear and nose normal, oropharynx normal Nose: + facial exam abnormality (left facial droop) Neck: trachea midline, no thyromegaly normal visual inspection Respiratory: normal respiratory effort, lungs clear to auscultation Cardiovascular: RRR, no murmur, no edema Gastrointestinal (Abdomen): normal bowel sounds, soft, nontender, no hepatosplenomegaly Musculoskeletal: Head/Neck/Chest: normocephalic and head atraumatic Extremities: + upper extremity abnormal to inspection (left upper extremity ataxia) and + lower leg abnormality (left lower extremity ataxia) Neurologic: normal touch/pain/proprioception and moves all extremities Coordination: + abnormal [id number]-[id number] test (left upper extremity) and + abnormal emro-[id number] test (left lower extremity) Psychiatric: A+Ox3, euthymic affect Results & Data Vital Signs (Past 12 Hours) Vital Signs Temp Pulse Pulse Resp BP BP Pulse Ox 06/17/18 12:15 36.9 C 72 16 144/83 H 96 06/17/18 08:10 36.4 C L 66 18 143/90 H 95 06/17/18 08:00 54 L 06/17/18 03:56 36.6 C 60 16 127/73 94
[2018-06-17] MEDS: LOSARTAN POTASSIUM 25 MG TAB PO SCH (14:23)
--- NOTE | 2018-06-17 14:31 | Progress Note ---
DATE: 06/17/2018 I am seeing Mr. Palacio in followup of a right basal ganglia infarction. His echocardiography showed no atrial septal defect. The patient indicates he has mild persistent speech problems, the alien limb phenomenon is improving in the left upper extremity. PHYSICAL EXAMINATION: VITAL SIGNS: 144/83, 72, 15, 36.9. NEUROLOGICAL: Mild dysarthria. Mild flattening of the left nasolabial fold. Mildly slow left rapid alternating movement. Gait is with marginal decreased left arm swing. IMPRESSION: Multiple lacunar infarctions. The patient should currently continue aspirin and Plavix for 3 weeks until we see him back and then we will make a determination on which antiplt tx to continue. Continue smoking cessation, statin, normotension. The patient will need a court recording monitor as an outpatient. The patient should see myself or Lucero Mathur in followup in 2 weeks. GRANT
[2018-06-17] MEDS: ATORVASTATIN 40 MG TAB PO SCH (20:04)
[2018-06-18 07:16] LABS: Basophils # (auto) 0.03 K/uL (0-0.2); Basophils % (auto) 0.5 %; Eosinophils # (auto) 0.26 K/uL (0-0.5); Eosinophils % (auto) 4.4 %; Hematocrit (blood only) 41.7 % (42-52); Hemoglobin 14.7 g/dL (14.0-18.0); Immature Granulocytes # (auto) 0.01 K/uL (0.00-0.02); Immature Granulocytes % (auto) 0.2 %; Lymphocytes # (auto) 2.34 K/uL (1.2-3.4); Lymphocytes % (auto) 39.6 %; Mean Corpuscular Hgb Conc 35.3 g/dL (32-36); Mean Corpuscular Volume 94.1 fL (80-100); Mean Platelet Volume 10.2 fL (7.4-10.4); Monocytes # (auto) 0.73 K/uL (0.11-0.59); Monocytes % (auto) 12.4 %; Neutrophils # (auto) 2.54 K/uL (1.4-6.5); Neutrophils % (auto) 42.9 %; Platelet Count 204 K/uL (130-400); RDW Coefficient of Variation 13.3 % (11.5-14.5); Red Blood Count 4.43 M/uL (4.7-6.1); White Blood Count 5.91 K/uL (4.8-10.8)
[2018-06-18] MEDS: AMLODIPINE BESYLATE 5 MG TAB PO SCH (07:43)
[2018-06-18] MEDS: LOSARTAN POTASSIUM 25 MG TAB PO SCH (07:43)
[2018-06-18] MEDS: ASPIRIN 81 MG ECTAB PO SCH (07:43)
[2018-06-18] MEDS: CLOPIDOGREL BISULFATE 75 MG TAB PO SCH (07:44)
[2018-06-18] MEDS: THIAMINE HCL 50 MG TABLET PO SCH (07:44)
[2018-06-18 07:50] LABS: Albumin Level 3.2 gm/dl (3.4-5.0); BUN Creatinine Ratio 19.4 (10-20); Calcium 8.8 mg/dl (8.5-10.1); Creatinine Clr Calc Pharmacy 76.9 ml/min; Est GFR (African American) 96.4; Est GFR (Non-African American) 83.2; Potassium 3.6 mmol/L (3.5-5.1)
[2018-06-18 07:53] LABS: Albumin Globulin Ratio 0.8 (0.9-2); Bilirubin,Total 0.6 mg/dl (0.2-1); Globulin 4.1 gm/dl (2.5-4.0); Total Protein 7.3 gm/dl (6.4-8.2)
--- NOTE | 2018-06-18 14:25 | Neurology Progress Note ---
Date of Service June 18, 2018 Assessment & Plan (1) Facial droop: 1. MRI with and without r/o stroke 2. TTE- with bubble study- no ASD 3. CTA head and neck for vascular evaluation- no significant stenosis 4. start aspirin 81 mg daily and plavix 75 mg daily x 21 days then aspirin only for life- importance to be compliant with medications 5. optimize HTN, HLD, LDL <70 6. smoking cessation discussed importance to quit 7. PT/OT speech for any discharge needs- speech therapy needed 8. will need to establish care mgt input for discharge plan 9. follow up with neurology as out patient 4-6 weeks 10. ZIO as outpatient for irregular rhythm (2) Slurred speech: same as above (3) Stroke: same as above Supervising Physician Co-Signing Physician Notes I have seen and discussed above patient with Dr Lucero Crum, neurology. Discussed with [place] Mendoza. Management as above. ANABELA Crum MD Anabelle Lerner is a 57 year old male who presented with a facial droop and slurred speech. He woke this am with the symptoms. He had a stroke in December in [place] with similar symptoms. He was placed on aspirin after the previous stroke but has not been taking it or the other medication he was told to take. He is currently homeless but moved to [place] area to be closer to his family. he denies any drug or EtoH use. he smokes 1ppd cigarettes. he states the slurred speech and facial droop has not changed since admission. He is now stating he is moving back to [place]. denies CP, SOB, abdominal pain, one sided weakness, numbness tingling, N, V, vision changes, swallowing issues. Physical Exam Physical Exam: Gen: alert NAD lungs course breath sounds CV RRR neuro: [facility], 2019, in [place] flattening of nasolabial fold on left speech-dysphasia with some words. strength hand steam train driver biceps triceps 5/5 bilateral, hip flex 5/5 bialterally plantar flex ext 5/5 Results & Data Vital Signs (Past 12 Hours) Vital Signs Temp Pulse Pulse Resp BP BP Pulse Ox 06/18/18 11:51 36.6 C 74 18 110/69 95 06/18/18 10:20 67 06/18/18 07:02 36.6 C 68 18 131/73 96 06/18/18 04:09 36.5 C 70 18 132/66 94 Laboratory Results Abnormal lab results 06/18/18 06/18/18 Range/Units 06:42 06:42 RBC 4.43 L (4.7-6.1) M/uL Hct 41.7 L (42-52) % [place] # (Auto) 0.73 H (0.11-0.59) K/uL BUN 19 H (7-18) mg/dl Albumin 3.2 L (3.4-5.0) gm/dl Globulin 4.1 H (2.5-4.0) gm/dl Albumin/Globulin Ratio 0.8 L (0.9-2) Diagnostic Findings no new imaging
--- NOTE | 2018-06-18 16:48 | Hospitalist Progress Note ---
Date of Service June 18, 2018 Assessment & Plan (1) Acute CVA (cerebrovascular accident): This is a 57-year-old male with history of ischemic CVA in Nov 2017, HTN, HLD, tobacco use disorder and other medical problems listed below who presents with facial droop and slurred speech and was found to have an acute right basal ganglia infarct. acute stroke and evaluation with MRI that patient has had Acute right basal ganglia infarct -acute right basal ganglia infarct likely the source of acute symptoms of left sided facial droop and left extremity ataxia -MRI also with findings of old infarcts: Moderately extensive white matter disease with multiple old lacunar infarcts involving both cerebellar hemispheres the pontomedullary junction both basal ganglia and both thalami; H/o ischemic CVA in Nov 2017 -Patient have received full dose aspirin on admission day of 06/15/18 and was outside of window for TPA -aspirin 81 mg daily and clopidgrel 75 mg daily started on 06/16/18 and neurology recommends this combination regimen for 21 days and then aspirin 81 mg daily alone -continue atorvastatin 80 mg daily -06/17/18: Patient's left sided ataxia appear better today. more coordinate left heel to sheppard test. better left hand finger to nose test. I do not appreciate any Alien limb phenomenon that was suggested by neurology as patient has control of left extremities. still with left facial droop 06/18/18: Patient''s left sided symptoms continue to be improved. left nasolabial flattening. Patient was denied physical therapy rehabilitation for [facility]. embedded case manager is applying for [facility] (2) HTN (hypertension): blood pressure controlled for now - last blood pressure 144/83 continue home dose amlodipine 10 mg daily continue losartan 25 mg daily will monitor blood pressures further before considering to restart HCTZ 25 mg daily (3) HLD (hyperlipidemia): Continue atorvastatin 80 mg daily History of alcohol intoxication in the past as per previous ED presentations -received banana bag on 06/15/18 -no evidence of alcohol withdrawal at this time DVT Ppx: SCDs Code status: FULL code per discussion with patient 06/15/18 Patient gave permission to speak with Toño Goetz director of "[employer]" which is a homeless detention agency ([phone]) who reports that patient has been with the homeless agency for several months as he was originally from [place] and came to [place] to repair relationship with estranged sister in the local area. However patient no longer stays in touch with the sister due to deteriorated relationship. Patient in the past received medical care through [facility] ([facility]) but after obtaining medical assistance the patient will follow with Dr. Griggs at [facility] but patient has not seen this outpatient medical provider as of yet will need embedded case managersenior manager on discharge needs Subjective Patient''s left sided symptoms continue to be improved. he is more mobile with the left upper and lower extremities. denies headache. denies problems with eating. his speech sounds similar to me from previous days. patient denies chest pain or shortness of breath. patient denies plans of leaving [place] in the near future Physical Exam Constitutional: WD/WN, vitals as above Eyes: PERRL, conjunctivae normal, anicteric sclerae EOM intact bilaterally ENMT: external ear and nose normal, oropharynx normal Nose: + facial exam abnormality (left nasolabial flattening) Neck: trachea midline, no thyromegaly normal visual inspection Respiratory: normal respiratory effort, lungs clear to auscultation Cardiovascular: RRR, no murmur, no edema Gastrointestinal (Abdomen): normal bowel sounds, soft, nontender, no hepatosplenomegaly Musculoskeletal: no cyanosis or clubbing, extremities motor strength 5/5 Head/Neck/Chest: normocephalic and head atraumatic Extremities: + upper extremity abnormal to inspection (left upper extremity ataxia) Neurologic: normal touch/pain/proprioception and moves all extremities Psychiatric: A+Ox3, euthymic affect Results & Data Vital Signs (Past 12 Hours) Vital Signs Temp Pulse Pulse Resp BP Pulse Ox 06/18/18 16:10 36.4 C L 66 18 111/67 97 06/18/18 11:51 36.6 C 74 18 110/69 95 06/18/18 10:20 67 06/18/18 07:02 36.6 C 68 18 131/73 96
[2018-06-18] MEDS: ATORVASTATIN 40 MG TAB PO SCH (20:13)
[2018-06-19] MEDS: THIAMINE HCL 50 MG TABLET PO SCH (08:16)
[2018-06-19] MEDS: ASPIRIN 81 MG ECTAB PO SCH (08:16)
[2018-06-19] MEDS: LOSARTAN POTASSIUM 25 MG TAB PO SCH (08:16)
[2018-06-19] MEDS: AMLODIPINE BESYLATE 5 MG TAB PO SCH (08:16)
[2018-06-19] MEDS: CLOPIDOGREL BISULFATE 75 MG TAB PO SCH (08:16)
[2018-06-19 08:35] LABS: Calcium 9.1 mg/dl (8.5-10.1); Creatinine Clr Calc Pharmacy 86.3 ml/min; Est GFR (Non-African American) 94.9; Potassium 3.9 mmol/L (3.5-5.1)
--- NOTE | 2018-06-19 15:13 | Hospitalist Progress Note ---
Date of Service June 19, 2018 Assessment & Plan (1) Acute CVA (cerebrovascular accident): This is a 57-year-old male with history of ischemic CVA in Nov 2017, HTN, HLD, tobacco use disorder and other medical problems listed below who presents with facial droop and slurred speech and was found to have an acute right basal ganglia infarct. acute stroke and evaluation with MRI that patient has had Acute right basal ganglia infarct -acute right basal ganglia infarct likely the source of acute symptoms of left sided facial droop and left extremity ataxia -MRI also with findings of old infarcts: Moderately extensive white matter disease with multiple old lacunar infarcts involving both cerebellar hemispheres the pontomedullary junction both basal ganglia and both thalami; H/o ischemic CVA in Nov 2017 -Patient have received full dose aspirin on admission day of 06/15/18 and was outside of window for TPA -aspirin 81 mg daily and clopidgrel 75 mg daily started on 06/16/18 and neurology recommends this combination regimen for 21 days and then aspirin 81 mg daily alone -continue atorvastatin 80 mg daily -06/17/18: Patient's left sided ataxia appear better today. more coordinate left heel to sheppard test. better left hand finger to nose test. I do not appreciate any Alien limb phenomenon that was suggested by neurology as patient has control of left extremities. still with left facial droop 06/18/18: Patient''s left sided symptoms continue to be improved. left nasolabial flattening. Patient was denied physical therapy rehabilitation for [facility]. spring encaser is applying for House of Care 06/19/18: spring encaser informed medical doctor that patient will have House of care bed available for 06/20/18. patient's ataxia appears almost resolved (2) HTN (hypertension): blood pressure controlled for now - last blood pressure 106/66 continue home dose amlodipine 10 mg daily continue losartan 25 mg daily will avoid home dose HCTZ at this time (3) HLD (hyperlipidemia): Continue atorvastatin 80 mg daily History of alcohol intoxication in the past as per previous ED presentations -received banana bag on 06/15/18 -no evidence of alcohol withdrawal at this time DVT Ppx: SCDs Code status: FULL code per discussion with patient 06/15/18 Patient gave permission to speak with Toño Goetz director of "[employer]" which is a homeless custodial agency ([phone]) who reports that patient has been with the homeless agency for several months as he was originally from [place] and came to [place] to repair relationship with estranged sister in the local area. However patient no longer stays in touch with the sister due to deteriorated relationship. Patient in the past received medical care through [facility] ([facility] but after obtaining medical assistance the patient will follow with Dr. Griggs at [facility] but patient has not seen this outpatient medical provider as of yet spring encaser informed medical doctor that patient will have House of care bed available for 06/20/18 Subjective patient's ataxia appears almost resolved. left extremity movements very fluid such as with finger to nose test and heel to sheppard test. continues to have some left facial labial fold flattening. no problems with speech. no problems with eating food. denies headache. no lightheadedness. no chest pain no shortness of breath spring encaser informed medical doctor that patient will have House of care bed available for 06/20/18 Physical Exam Constitutional: WD/WN, vitals as above Eyes: PERRL, conjunctivae normal, anicteric sclerae EOM intact bilaterally ENMT: external ear and nose normal, oropharynx normal Nose: + facial exam abnormality (left nasolabial flattening) Neck: trachea midline, no thyromegaly normal visual inspection Respiratory: normal respiratory effort, lungs clear to auscultation Cardiovascular: RRR, no murmur, no edema Gastrointestinal (Abdomen): normal bowel sounds, soft, nontender, no hepatosplenomegaly Musculoskeletal: no cyanosis or clubbing, extremities motor strength 5/5 Head/Neck/Chest: normocephalic and head atraumatic Neurologic: normal touch/pain/proprioception and moves all extremities Psychiatric: A+Ox3, euthymic affect Results & Data Vital Signs (Past 12 Hours) Vital Signs Temp Pulse Pulse Resp BP Pulse Ox 06/19/18 11:12 36.8 C 69 18 106/66 96 06/19/18 07:19 65 06/19/18 07:18 36.7 C 67 18 130/82 97 06/19/18 04:00 36.4 C L 71 20 146/76 H 94
[2018-06-19] MEDS: ATORVASTATIN 40 MG TAB PO SCH (20:08)
[2018-06-20] MEDS: THIAMINE HCL 50 MG TABLET PO SCH (08:31)
[2018-06-20] MEDS: AMLODIPINE BESYLATE 5 MG TAB PO SCH (08:31)
[2018-06-20] MEDS: CLOPIDOGREL BISULFATE 75 MG TAB PO SCH (08:31)
[2018-06-20] MEDS: ASPIRIN 81 MG ECTAB PO SCH (08:31)
[2018-06-20] MEDS: LOSARTAN POTASSIUM 25 MG TAB PO SCH (08:31)
--- NOTE | 2018-06-20 09:03 | Hospitalist Progress Note ---
Date of Service June 20, 2018 Assessment & Plan (1) Acute CVA (cerebrovascular accident): This is a 57-year-old male with history of ischemic CVA in Nov 2017, HTN, HLD, tobacco use disorder and other medical problems listed below who presents with facial droop and slurred speech and was found to have an acute right basal ganglia infarct. acute stroke and evaluation with MRI that patient has had Acute right basal ganglia infarct -acute right basal ganglia infarct likely the source of acute symptoms of left sided facial droop and left extremity ataxia -MRI also with findings of old infarcts: Moderately extensive white matter disease with multiple old lacunar infarcts involving both cerebellar hemispheres the pontomedullary junction both basal ganglia and both thalami; H/o ischemic CVA in Nov 2017 -Patient have received full dose aspirin on admission day of 06/15/18 and was outside of window for TPA -aspirin 81 mg daily and clopidgrel 75 mg daily started on 06/16/18 and neurology recommends this combination regimen for 21 days and then aspirin 81 mg daily alone -continue atorvastatin 80 mg daily -06/17/18: Patient's left sided ataxia appear better today. more coordinate left heel to sheppard test. better left hand finger to nose test. I do not appreciate any Alien limb phenomenon that was suggested by neurology as patient has control of left extremities. still with left facial droop 06/18/18: Patient''s left sided symptoms continue to be improved. left nasolabial flattening. Patient was denied physical therapy rehabilitation for [facility]. comp field case manager is applying for House of Care 06/19/18: comp field case manager informed medical doctor that patient will have House of care bed available for 06/20/18. patient's ataxia appears almost resolved 06/20/18 Patient is discharged to Home of Care Patient should continue taking medications as prescribed or renewed for: -clopidogrel 75 mg daily (Patient was started on this medication on 06/16/18 and is to take for 21 days with last day as 07/06/18) aspirin 81 mg daily atorvastatin 80 mg daily amlodipine 10 mg daily losartan 25 mg daily -Follow up with primary care doctor 06/26/2018 11:00 AM Provider Dylon Griggs MD Department General Internal Medicine [address] , [place] [address] [phone] (Patient may need set up with Zio patch as outpatient as per neurology service) -07/16/2018 10:40 AM Provider Lucero Mathur PA-C Department Neurology [address] [place] [address] [phone] (2) HTN (hypertension): blood pressure controlled on home dose amlodipine 10 mg daily and losartan 25 mg daily (3) HLD (hyperlipidemia): Continue atorvastatin 80 mg daily History of alcohol intoxication in the past as per previous ED presentations -received banana bag on 06/15/18 -no evidence of alcohol withdrawal at this time History of Tobacco Use - Patient should avoid alcohol use and tobacco products DVT Ppx: SCDs Code status: FULL code per discussion with patient 06/15/18 Patient gave permission to speak with Toño Goetz director of "[employer]" which is a homeless residential agency ([phone]) who reports that patient has been with the homeless agency for several months as he was originally from [place] and came to [place] to repair relationship with estranged sister in the local area. However patient no longer stays in touch with the sister due to deteriorated relationship. Patient in the past received medical care through [facility] ([facility]) but after obtaining medical assistance the patient will follow with Dr. Griggs at [facility] but patient has not seen this outpatient medical provider as of yet comp field case manager informed medical doctor that patient will have House of care bed available for 06/20/18 Discharge Instructions Patient is discharged to Home of Care Patient should continue taking medications as prescribed or renewed for clopidogrel 75 mg daily (Patient was started on this medication on 06/16/18 and is to take for 21 days with last day as 07/06/18) aspirin 81 mg daily atorvastatin 80 mg daily amlodipine 10 mg daily losartan 25 mg daily Patient should avoid alcohol use and tobacco products Follow up with primary care doctor 06/26/2018 11:00 AM Provider Dylon Griggs MD Department General Internal Medicine [address] [place], [place] [address] [phone] (Patient may need set up with Zio patch as outpatient as per neurology service) 07/16/2018 10:40 AM Provider Lucero Mathur PA-C Department Neurology [address] [place] [address] [phone] Discharge Diagnosis : Acute CVA (cerebrovascular accident) due to Acute right basal ganglia infarct ; HTN (hypertension); HLD (hyperlipidemia), History of Alcohol use; History of Tobacco Use Subjective Subjective as of 06/20/17: Patient continues to have left labial fold flattening. But generally completely resolved of left sided ataxia symptoms. Patient this morning is at mental baseline. He has has no complaints. He denies headache. No chest pain. No fever. No shortness of breath. On room air. no abdomen pain. no vomiting. he has been eating well without choking. Patient agrees of the discharge plans to [place] [facility]. Patient aware of instructions. The linked subjective as below is that of the time of admission on 06/15/18 Yann is a 57 year old male who presented with a facial droop and slurred speech. He woke this am with the symptoms. He had a stroke in December in [place] with similar symptoms. He was placed on aspirin after the previous stroke but has not been taking it or the other medication he was told to take. He is currently homeless but moved to [facility] to be closer to his family. he denies any drug or EtoH use. he smokes 1ppd cigarettes. he states the slurred speech and facial droop has not changed since admission. He is now stating he is moving back to [place]. denies CP, SOB, abdominal pain, one sided weakness, numbness tingling, N, V, vision changes, swallowing issues. Physical Exam Constitutional: WD/WN, vitals as above Eyes: PERRL, conjunctivae normal, anicteric sclerae EOM intact bilaterally ENMT: external ear and nose normal, oropharynx normal Nose: + facial exam abnormality (left nasolabial flattening) Neck: trachea midline, no thyromegaly normal visual inspection Respiratory: normal respiratory effort, lungs clear to auscultation Cardiovascular: RRR, no murmur, no edema Gastrointestinal (Abdomen): normal bowel sounds, soft, nontender, no hepatosplenomegaly Musculoskeletal: no cyanosis or clubbing, extremities motor strength 5/5 Head/Neck/Chest: normocephalic and head atraumatic Neurologic: normal touch/pain/proprioception and moves all extremities Psychiatric: A+Ox3, euthymic affect Results & Data Vital Signs (Past 12 Hours) Vital Signs Temp Pulse Pulse Resp BP BP Pulse Ox 06/20/18 08:03 36.7 C 72 18 131/71 97 06/20/18 07:33 68 06/20/18 04:00 36.7 C 75 18 139/87 93 06/20/18 00:22 66 06/19/18 23:00 36.7 C 79 18 129/76 94
[2018-06-20] MEDS ORDERED: STROKE PATIENT DISCHARGE STA (09:09)
--- NOTE | 2018-06-20 09:20 | Discharge Summary ---
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 Patient woke up and noted these new symptoms and called EMS to be brought to the ED for further evaluation. Did not have the symptoms when he went to bed last night. Was diagnosed with a stroke in November 2017 but was in [place] at that time. Was started on a full dose aspirin. Has recently moved to [place] to be closer to family, but is currently homeless and staying in shelters via [facility]. Has not been taking medications because he feels that they are difficult to keep track of. Denies any difficulty swallowing, weakness or numbness in extremities, difficulty ambulating or confusion. Smokes 1 ppd cigarettes x 30 years. Last etoh 2 weeks ago. Found to be hemodynamically stable in ED. Given full dose aspirin and [address] head without contrast is negative for acute abnormalities. Denies fever, chills, lightheadedness, headache, chest pain, shortness of breath, nausea, vomiting, abdominal pain, dysuria, diarrhea, constipation or lower extremity swelling. Admission Exam Per Admitting Provider General Appearance: WD/WN, no apparent distress, appears older than stated age, resting comfortably Head: normocephalic, atraumatic Eyes: normal inspection, PERRL, EOMI ENT: hearing grossly normal, pharynx normal (moist mucous membranes) Neck: supple, no JVD, no adenopathy Respiratory/Chest: lungs clear to auscultation. No wheezes, rales or rhonci. No respiratory distress or accessory muscle use Cardiovascular: regular rate, rhythm, no murmur, normal peripheral pulses Abdomen/GI: normal bowel sounds, soft, non-tender to palpation Extremities/Musculoskelatal: normal inspection, no calf tenderness, normal capillary refill, no pedal edema Neurologic/Psych: alert, normal mood/affect, oriented x 3. L facial droop. Dysarthria. No weakness or sensory deficit noted. Cerebellar tests normal Skin: normal color, warm/dry Principal Diagnosis Acute CVA (cerebrovascular accident) due to Acute right basal ganglia infarct ; HTN (hypertension); HLD (hyperlipidemia), History of Alcohol use; History of Tobacco Use Discharge Exam Constitutional WD/WN, vitals as above Eyes PERRL, conjunctivae normal, anicteric sclerae EOM intact bilaterally ENMT external ear and nose normal, oropharynx normal Nose: + facial exam abnormality (left nasolabial flattening) Neck trachea midline, no thyromegaly normal visual inspection Respiratory normal respiratory effort, lungs clear to auscultation Cardiovascular RRR, no murmur, no edema Gastrointestinal (Abdomen) normal bowel sounds, soft, nontender, no hepatosplenomegaly Musculoskeletal no cyanosis or clubbing, extremities motor strength 5/5 Head/Neck/Chest: normocephalic and head atraumatic Neurologic normal touch/pain/proprioception and moves all extremities Psychiatric A+Ox3, euthymic affect Discharge Data Allergies Allergy/AdvReac Type Severity Reaction Status Date / Time No Known Allergies Allergy Verified 06/15/18 11:22 Consultations 06/15/18 11:47 ED Decision to Admit Stat 06/15/18 13:19 Consult Neurology Routine 06/15/18 15:37 Consult Case Management - Discharge Planning Routine Ordered Studies 06/15/18 10:46 CT head/brain wo con Stat 06/15/18 15:37 CT angio head w con Routine CT angio neck with con Routine MR brain wo/w con Routine Hospital Course (1) Acute CVA (cerebrovascular accident): This is a 57-year-old male with history of ischemic CVA in Nov 2017, HTN, HLD, tobacco use disorder and other medical problems listed below who presents with facial droop and slurred speech and was found to have an acute right basal ganglia infarct. acute stroke and evaluation with MRI that patient has had Acute right basal ganglia infarct -acute right basal ganglia infarct likely the source of acute symptoms of left sided facial droop and left extremity ataxia -MRI also with findings of old infarcts: Moderately extensive white matter disease with multiple old lacunar infarcts involving both cerebellar hemispheres the pontomedullary junction both basal ganglia and both thalami; H/o ischemic CVA in Nov 2017 -Patient have received full dose aspirin on admission day of 06/15/18 and was outside of window for TPA -aspirin 81 mg daily and clopidgrel 75 mg daily started on 06/16/18 and neurology recommends this combination regimen for 21 days and then aspirin 81 mg daily alone -continue atorvastatin 80 mg daily -06/17/18: Patient's left sided ataxia appear better today. more coordinate left heel to sheppard test. better left hand finger to nose test. I do not appreciate any Alien limb phenomenon that was suggested by neurology as patient has control of left extremities. still with left facial droop 06/18/18: Patient''s left sided symptoms continue to be improved. left nasolabial flattening. Patient was denied physical therapy rehabilitation for [facility]. caser in is applying for House of Care 06/19/18: caser in informed medical doctor that patient will have House of care bed available for 06/20/18. patient's ataxia appears almost resolved 06/20/18 Patient is discharged to Home of Care Patient should continue taking medications as prescribed or renewed for: -clopidogrel 75 mg daily (Patient was started on this medication on 06/16/18 and is to take for 21 days with last day as 07/06/18) aspirin 81 mg daily atorvastatin 80 mg daily amlodipine 10 mg daily losartan 25 mg daily -Follow up with primary care doctor 06/26/2018 11:00 AM Provider Dylon Griggs MD Department General Internal Medicine [address] [place] [address] [phone] (Patient may need set up with Zio patch as outpatient as per neurology service) -07/16/2018 10:40 AM Provider Lucero Mathur PA-C Department Neurology [address] [place] [address] [phone] (2) HTN (hypertension): blood pressure controlled on home dose amlodipine 10 mg daily and losartan 25 mg daily (3) HLD (hyperlipidemia): Continue atorvastatin 80 mg daily History of alcohol intoxication in the past as per previous ED presentations -received banana bag on 06/15/18 -no evidence of alcohol withdrawal at this time History of Tobacco Use - Patient should avoid alcohol use and tobacco products DVT Ppx: SCDs Code status: FULL code per discussion with patient 06/15/18 Patient gave permission to speak with Toño Goetz director of "[employer]" which is a homeless half-way agency ([phone]) who reports that patient has been with the homeless agency for several months as he was originally from [place] and came to [place] to repair relationship with estranged sister in the local area. However patient no longer stays in touch with the sister due to deteriorated relationship. Patient in the past received medical care through [facility] but after obtaining medical assistance the patient will follow with Dr. Griggs at [facility] but patient has not seen this outpatient medical provider as of yet caser in informed medical doctor that patient will have House of care bed available for 06/20/18 Discharge Instructions Patient is discharged to Home of Care Patient should continue taking medications as prescribed or renewed for clopidogrel 75 mg daily (Patient was started on this medication on 06/16/18 and is to take for 21 days with last day as 07/06/18) aspirin 81 mg daily atorvastatin 80 mg daily amlodipine 10 mg daily losartan 25 mg daily Patient should avoid alcohol use and tobacco products Follow up with primary care doctor 06/26/2018 11:00 AM Provider Dylon Griggs MD Department General Internal Medicine [address] [facility] , [place], [place] [id number] [phone] (Patient may need set up with Zio patch as outpatient as per neurology service) 07/16/2018 10:40 AM Provider Lucero Mathur PA-C Department Neurology [address], [place], [place] [id number] [phone] Discharge Diagnosis : Acute CVA (cerebrovascular accident) due to Acute right basal ganglia infarct ; HTN (hypertension); HLD (hyperlipidemia), History of Alcohol use; History of Tobacco Use Total Time Total Time Spent Total Time Spent (In Minutes): 40 minutes Total Time Includes: Examination of the Patient, Discharge Planning, Medication Reconciliation and Communication With Other Providers Discharge Plan Discharge Items Patient Disposition: Personal Long Term Reason For Visit: SLURRED SPEECH, L FACIAL DROOP Discharge Diagnosis: Acute CVA (cerebrovascular accident); HTN (hypertension); HLD (hyperlipidemia), History of Alcohol use; History of Tobacco Use Condition: Good Discharge Goals: Improve disease control Activity: Resume your previous activity Non-emergency contact: Primary Care Provider and Neurologist Call non-emergency contact if: you have any medication questions Follow-up/Referrals: PCPNATHANIEL [Primary Care Provider] - 06/26/18 11:00 am (Dr. Griggs) Diet: Heart Healthy Addtl Provider Instructions: Patient is discharged to Home of Care Patient should continue taking medications as prescribed or renewed for clopidogrel 75 mg daily (Patient was started on this medication on 06/16/18 and is to take for 21 days with last day as 07/06/18) aspirin 81 mg daily atorvastatin 80 mg daily amlodipine 10 mg daily losartan 25 mg daily Patient should avoid alcohol use and tobacco products Follow up with primary care doctor 06/26/2018 11:00 AM Provider Dylon Griggs MD Department General Internal Medicine [address] [facility] [address] [place] [address] [phone] (Patient may need set up with Zio patch as outpatient as per neurology service) 07/16/2018 10:40 AM Provider Lucero Mathur PA-C Department Neurology [address] [facility] [place] [address] [phone] Prescriptions: New amlodipine 10 mg tablet 10 mg PO QAM 30 Days Qty: 30 RF: 0 atorvastatin 40 mg Tablet 80 mg PO DAILY 30 Days Qty: 60 RF: 0 clopidogrel 75 mg Tablet 75 mg PO QAM 16 Days Qty: 16 RF: 0 aspirin [Ecotrin Low Strength] 81 mg Tablet,Delayed Release (Dr/Ec) 81 mg PO QAM 30 Days Qty: 30 RF: 0 losartan 25 mg Tablet 25 mg PO QAM 30 Days Qty: 30 RF: 0 Discontinued atorvastatin 40 mg Tablet 80 mg PO HS RF: 0 amlodipine 10 mg Tablet 10 mg PO DAILY RF: 0 losartan 25 mg Tablet 25 mg PO DAILY RF: 0 hydrochlorothiazide 25 mg Tablet 25 mg PO QAM RF: 0 Stand-Alone Forms: [facility] Discharge Orders: Discharge Order (Routine); Ordered 06/20/18 Ordered By: Cali Resendiz Admission Data Admit Date/Time: 06/16/18 14:06 Attending Provider: Cali Resendiz Admit Provider: Cyndee Naranjo Primary Care Provider: PCP,NO Other Providers: Lucero Crum ; Cyndee Naranjo Service: Telemetry Medical
--- NOTE | 2018-06-20 09:43 | Pharmacy Report ---
Pharmacist Stroke Counseling - Date of Service June 20, 2018 - Scope: Pharmacy has been consulted to provide medication discharge counseling for this patient admitted with ischemic stroke as per the Pharmacist Discharge Counseling for Stroke Patients Protocol. - Medications on Discharge: Home Medications Medication Instructions Recorded Confirmed amlodipine 10 mg PO DAILY 06/15/18 06/15/18 atorvastatin 80 mg PO HS 06/15/18 06/15/18 hydrochlorothiazide 25 mg PO QAM 06/15/18 06/15/18 losartan 25 mg PO DAILY 06/15/18 06/15/18 New Rx's Medication Instructions Recorded amlodipine 10 mg PO QAM 30 Days #30 tab 06/20/18 aspirin [Ecotrin Low Strength] 81 mg PO QAM 30 Days #30 tab 06/20/18 atorvastatin 80 mg PO DAILY 30 Days #60 tab 06/20/18 clopidogrel 75 mg PO QAM 16 Days #16 tab 06/20/18 losartan 25 mg PO QAM 30 Days #30 tab 06/20/18 - Action: The above medications, specifically ones for stroke treatment and prophylaxis, have been reviewed in detail with the patient prior to discharge. This includes indication, common adverse reactions, drug interactions, and medication administration. Medication counseling has been employed using the teach-back method to ensure understanding. - Outcome: The patient has demonstrated understanding of the medications. Please note, they are aware that the pharmacist will call them within 72 hours post-discharge to confirm that the appropriate medications are being taken and answer any further medication related questions the patient might have at that time. Contact information Individual to be contacted: self Relationship to patient (if applicable): n/a Phone number: [phone] Best time to call: anytime Additional comments: Spoke with patient regarding the importance of these medications in preventing a future stroke. Recommended not stopping unless okay'ed by the physician. Patient was understanding of this. Thank you for allowing pharmacy to be involved in the care of this patient. Please call [phone] or [phone] with any additional questions
[2018-06-20 12:16] VITALS: PULSE 63; TEMP 97.5; O2SAT 94
[2018-06-20 13:40] VITALS: BP 139/87
--- NOTE | 2018-06-21 10:51 | Pharmacy Report ---
Pharmacist Post D/C Phone Note - Phone Note: Date of phone call: June 21, 2018. Individual with whom pharmacist spoke to: SISSY RAMIREZ The following questions were reviewed during the phone call with responses listed below each: Can you tell me the medications that you are currently taking as well as when and how you take each medication? -See Table Below When have you missed any doses of your medications? - None What side effects are you having from your medications, specifically, the new medications you were started on? - None What questions do you have about your medications? - None What problems are you having obtaining your medications? - None (medications obtained) When is your next appointment with your primary care doctor? - 06/26 - Dr. Griggs Additional comments: - Patient demonstrated good understanding of points made by pharmacist during counseling session on 06/20. He had all of his prescription bottles in front of him and read them to me with instructions for administration. He recalled that clopidogrel would be stopped on 07/06 after 21 days of treatment, that aspirin would be lifelong, and that his PCP appointment was on the . As per the Pharmacist Discharge Counseling for Stroke Patients Protocol, this phone call has been completed within 72 hours of discharge. Thank you for allowing us to be involved in the care of this patient. - Home Medications: New Rx's Medication Instructions Recorded amlodipine 10 mg PO QAM 30 Days #30 tab 06/20/18 aspirin [Ecotrin Low Strength] 81 mg PO QAM 30 Days #30 tab 06/20/18 atorvastatin 80 mg PO DAILY 30 Days #60 tab 06/20/18 clopidogrel 75 mg PO QAM 16 Days #16 tab 06/20/18 losartan 25 mg PO QAM 30 Days #30 tab 06/20/18
== END 2018-06-20 14:26 | disposition home or self-care (01) | DRG 66 ==
LOC: ED 10:26 → 2W 10:26